=== PATIENT | male | born 1990 | race Caucasian/White ===

== ENCOUNTER 2021-05-03 18:54 | Emergency (ER) | payer MEDICARE, OTHER ==
[2021-05-03 20:34] LABS: RED BLOOD COUNT 4.21 M/UL (4.20-5.50); WHITE BLOOD COUNT 12.1 K/UL (4.5-11.0)
[2021-05-03 20:53] LABS: BUN/CREATININE RATIO 22 (0-10)
== END 2021-05-04 00:45 | disposition home or self-care (01) ==
LOC: ER1 18:54
PROVIDERS: Physician Assistant
DX: L03.114 Cellulitis of left upper limb (principal); L02.414 Cutaneous abscess of left upper limb; F17.210 Nicotine dependence, cigarettes, uncomplicated
CPT/HCPCS: 80053; 83605; 85025; 85652; 86140; 87040; 99283